=== PATIENT | female | born 2000 | race Caucasian/White ===

== ENCOUNTER 2021-11-05 10:56 | Outpatient (CLI) | payer BC, SELFPAY ==
--- NOTE | ~2021-11-05 | US_ITS ---
EXAMINATION: US pelvic complete w TV EXAM DATE: 11/05/2021 11:28 INDICATION: Unspecified ovarian cyst, unspecified side TECHNIQUE: Pelvic transabdominal and transvaginal sonogram was performed. There are multiple graysca le and Doppler images available for interpretation. There is no prior study for comparison. FINDINGS: Uterus measures 7.1 x 3.4 x 4.8 cm, is retroverted and morphologically normal. Endometria l stripe measures 6 mm, within normal limits. There is no free pelvic fluid. Right adnexa: The ovary measures 4.5 x 2.1 x 3.6 cm and is morphologically normal. Ovarian vascular f low confirmed. Left adnexa: The ovary measures 3.2 x 1.8 x 2.8 cm and is morphologically normal. Ovarian vascular fl ow confirmed. IMPRESSION: 1. Unremarkable pelvic ultrasound exam. Reviewed, dictated and finalized at location A.
== END 2021-11-05 10:57 ==
PROVIDERS: Visit Provider Student in an Organized Health Care Education/Training Program
DX: N83.209 Unspecified ovarian cyst, unspecified side (principal)
CPT/HCPCS: 76830; 76856

== ENCOUNTER 2022-04-29 14:41 | Outpatient (CLI) | payer BC, SELFPAY ==
[2022-04-29 15:36] LABS: Beta HCG Quantitative < 2.39 mIU/ML
[2022-05-03 07:08] LABS: Progesterone 0.5 ng/mL (***)
== END 2022-04-29 14:42 | disposition home or self-care (01) ==
PROVIDERS: Visit Provider Obstetrics & Gynecology
DX: N92.6 Irregular menstruation, unspecified (principal)
CPT/HCPCS: 36415; 84144; 84702

== ENCOUNTER 2024-01-26 12:41 | Outpatient (CLI) | payer BC, SELFPAY ==
--- NOTE | ~2024-01-26 | US_ITS ---
US pelvic complete w TV Ordering provider: Eda Coley APRN History: . R10.2 - Pelvic and perineal pain . Comparison: None. Technique: Transabdominal and endovaginal ultrasound of the pelvis (Doppler ultrasound interrogation techniques used as needed for this exam.) FINDINGS: CERVIX: Normal. UTERUS: Measures 8.2x 3.6x 4.6 cm in length which is within normal limits and is anteverted. No myom etrial masses. ENDOMETRIUM: 8 mm. (Note: the premenopausal endometrium may measure up to 16 mm when in the secretory phase.) No endometrial masses, cysts or fluid. CUL DE SAC: Minimal free fluid posteriorly. RIGHT OVARY: Normal in size measuring 3.9x 2.2x 2.5 cm. Normal echotexture. Doppler vascular flow pre sent. LEFT OVARY: Normal in size measuring 4.4x 2 x 2.3 cm. Normal echotexture. Doppler vascular flow prese nt. ADNEXA: Normal. No mass. IMPRESSION: No significant abnormality seen. Minimal fluid in the cul-de-sac. Reviewed, dictated and finalized at location A.
== END 2024-01-26 12:42 | disposition home or self-care (01) ==
LOC: ANHIMG 12:43
PROVIDERS: Visit Provider Nurse Practitioner Family
DX: R10.2 Pelvic and perineal pain (principal)
CPT/HCPCS: 76830; 76856